=== PATIENT | male | born 1975 | race Caucasian/White ===

== ENCOUNTER → 2023-01-29 | Day surgery (SDC) | payer MEDICAID ==
[~2023-01-29] VITALS: Ht 167.6 cm; Wt 73.5 kg
[2023-01-29 09:23] LABS: BASOPHILS % 0.9 % (0.0-2.0); HEMATOCRIT. 50.2 % (42.0-52.0); HEMOGLOBIN. 16.9 g/dL (14.0-18.0); LYMPHOCYTES % 28.9 % (20.0-50.0); MEAN CORPUSCULAR HEMOGLOBIN 32.4 pg (28.0-32.0); MEAN CORPUSCULAR HGB CONC 33.7 g/dL (31.0-37.0); MEAN CORPUSCULAR VOLUME 96.1 fL (80.0-94.0); MONOCYTES % 11.7 % (2.0-8.0); NEUTROPHILS % 47.5 % (40.0-76.0); PLATELET 92 x1000/uL (130-400); RED BLOOD CELL COUNT 5.23 mill/uL (4.7-6.1); RED CELL DISTRIBUTION WIDTH 13.5 % (11.6-14.6); WHITE BLOOD COUNT 3.3 x1000/uL (4.5-11.0)
[2023-01-29 09:50] LABS: INR 1.3; PROTHROMBIN TIME 13.6 sec (9.6-11.0)
[2023-01-29 10:09] LABS: POTASSIUM 5.9 mEq/L (3.5-5.1)
[2023-01-29 10:20] LABS: CALCIUM 8.7 mg/dL (8.5-10.1)
[2023-01-29 10:36] LABS: CREATININE 13.1 mg/dL (0.6-1.3)
== END | disposition home or self-care (01) ==
LOC: OR 08:35
PROVIDERS: ATTEND Internal Medicine Cardiovascular Disease
DX: I71.21 Aneurysm of the ascending aorta, without rupture (principal); Z53.8 Procedure and treatment not carried out for other reasons; R94.39 Abnormal result of other cardiovascular function study; Z79.899 Other long term (current) drug therapy; Z88.8 Allergy status to other drugs, medicaments and biological substances
CPT/HCPCS: 36415; 80048; 85025; 93005

== ENCOUNTER → 2023-03-01 | Day surgery (SDC) | payer MEDICAID ==
[~2023-03-01] VITALS: Ht 172.7 cm; Wt 73.5 kg
[~2023-03-01] MED LIST: ACETAMINOPHEN 325MG TABLET PO PRN; ALLO100T PO; ASPI-1497 PO; ATROPINE SULFATE 1MG/10ML SYR ONE; DOXA-14 PO; EPINEPHRINE 0.1MG/ML (1:10,000) 10ML SYR ONE; FENTANYL CITRATE/PF 50MCG/ML 2ML VIAL ONE; FOLI0.8T23 PO; FURO80TA3 PO; HEPARIN 1000 UNITS/ML 10ML ONE; HYDRALAZINE 20MG/ML VIAL IV ONE; IODIXANOL 320MG/ML 100 ML BOTTLE IV ONE; LIDOCAINE HCL/PF 1% 10 MG/ML 5ML VIAL ONE; MIDAZOLAM HCL 2 MG/2 ML VIAL ONE; MORPHINE SULFATE 2 MG/ML CPJ (NOT FOR IM USE) IV PRN; NALOXONE HCL 0.4MG/ML VIAL IV PRN; ONDANSETRON HCL 4MG/2ML INJ IV PRN; SUCR500T PO; VERAPAMIL HCL 2.5 MG/1 ML 2ML VIAL IV ONE
[2023-03-01 09:03] LABS: BASOPHILS % 0.7 % (0.0-2.0); EOSINOPHILS % 11.2 % (0.0-5.0); HEMATOCRIT. 47.6 % (42.0-52.0); LYMPHOCYTES % 22.8 % (20.0-50.0); MEAN CORPUSCULAR HEMOGLOBIN 32.1 pg (28.0-32.0); MEAN CORPUSCULAR HGB CONC 33.6 g/dL (31.0-37.0); MEAN CORPUSCULAR VOLUME 95.3 fL (80.0-94.0); MEAN PLATELET VOLUME 8.2 fl (7.4-10.4); MONOCYTES % 10.2 % (2.0-8.0); NEUTROPHILS % 55.1 % (40.0-76.0); PLATELET 135 x1000/uL (130-400); RED CELL DISTRIBUTION WIDTH 13.4 % (11.6-14.6); WHITE BLOOD COUNT 4.6 x1000/uL (4.5-11.0)
[2023-03-01 09:11] LABS: PROTHROMBIN TIME 11.2 sec (9.6-11.0)
[2023-03-01 09:23] LABS: CALCIUM 8.9 mg/dL (8.5-10.1); POTASSIUM 4.4 mEq/L (3.5-5.1)
[2023-03-01 09:31] LABS: CREATININE 16.4 mg/dL (0.6-1.3)
== END | disposition home or self-care (01) ==
LOC: CCL 08:14
PROVIDERS: ATTEND Internal Medicine Cardiovascular Disease
DX: R94.39 Abnormal result of other cardiovascular function study (principal); R07.9 Chest pain, unspecified; I12.0 Hypertensive chronic kidney disease with stage 5 chronic kidney disease or end stage renal disease; N18.6 End stage renal disease; Z79.899 Other long term (current) drug therapy; Z98.890 Other specified postprocedural states; Z79.82 Long term (current) use of aspirin; Z88.8 Allergy status to other drugs, medicaments and biological substances
CPT/HCPCS: 93458; 80048; 85025; 85610; 85730; 36415; 93005; C1893; C1769 ×2; J3010; Q9967; J0461; J3490 ×3; J1644 ×2; J0360; J2250; C1887